=== PATIENT | female | born 1970 | race Caucasian/White ===

== ENCOUNTER 2022-09-21 06:29 | Day surgery (SDC) | payer OTHER ==
[2022-09-20 14:06] VITALS: BMI 21.4
[2022-09-21] MEDS ORDERED: LIDOCAINE HCL 2% (20ML MULTI-DOSE VIAL) ONE (07:00)
[2022-09-21] MEDS ORDERED: PROPOFOL 20 ML ONE (07:27)
[2022-09-21] MEDS ORDERED: ONDANSETRON 4 MG/2 ML VIAL ONE ×2 (07:27→08:12)
[2022-09-21] MEDS ORDERED: DEXAMETHASONE SOD PHOSPHATE 4 MG/1 ML VIAL ONE ×2 (07:27→08:12)
[2022-09-21] MEDS ORDERED: MIDAZOLAM HCL 2 MG/2 ML SINGLE DOSE VIAL ONE (07:27)
[2022-09-21] MEDS ORDERED: SUCCINYLCHOLINE CHLORIDE 200 MG/10 ML SYRINGE ONE (07:27)
[2022-09-21] MEDS ORDERED: BUPIVACAINE HCL/PF 0.25% (2.5MG/ML) 10 ML VIAL ONE (07:49)
[2022-09-21] MEDS ORDERED: ceFAZolin SODIUM 1 GM VIAL ONE (07:49)
[2022-09-21] MEDS ORDERED: KETOROLAC TROMETHAMINE 30 MG/1 ML VIAL ONE (08:13)
[2022-09-21 08:38] VITALS: TEMP 97.8
[2022-09-21] MEDS ORDERED: oxyCODONE HCL 5 MG TABLET ONE (09:10)
[2022-09-21 09:19] VITALS: RESP 18
[2022-09-21] MEDS ORDERED: ONDANSETRON 4 MG/2 ML VIAL IVPUSH PRN (09:38)
[2022-09-21] MEDS ORDERED: oxyCODONE HCL 5 MG TABLET PO PRN ×2 (09:38)
[2022-09-21] MEDS ORDERED: ACETAMINOPHEN 325 MG TABLET (FP) PO PRN (09:38)
[2022-09-21] MEDS ORDERED: LACTATED RINGERS SOLUTION 1,000 ML IV SCH (09:45)
[2022-09-21 10:16] VITALS: BP 121/64; PULSE 61
== END 2022-09-21 09:50 | disposition home or self-care (01) ==
LOC: FASU 06:29
PROVIDERS: ATTEND Orthopaedic Surgery Hand Surgery
PROC: 0LB50ZZ Excision of Right Lower Arm and Wrist Tendon, Open Approach (ICD-10-PCS; principal; 2022-09-21 07:56)
DX: M67.431 Ganglion, right wrist (principal)
CPT/HCPCS: 88304-TC; 94760

== ENCOUNTER 2024-01-27 21:51 | Emergency (ER) | payer OTHER ==
[2024-01-27 22:05] VITALS: BP 156/85; PULSE 69; RESP 17; TEMP 97.5; BMI 21.4
== END 2024-01-27 22:39 | disposition home or self-care (01) ==
LOC: FER 21:51
DX: K08.89 Other specified disorders of teeth and supporting structures (principal)
CPT/HCPCS: 99283-25